=== PATIENT | male | born 1965 | race Caucasian/White ===

== ENCOUNTER 2017-01-14 21:54 | Emergency (ER) | payer MEDICARE, OTHER ==
[~2017-01-14 21:54] MED LIST: GABAPENTIN600 MG PO; IBUPROFEN800 MG PO; LEVAQUIN500 MG PO; NITROQUICK0.4 MG SL; PAIN RELIEVER650 MG PO; PERCOCET 10-321 EACH PO; PREDNISONE 10MG10 MG PO; SINGULAIR10 MG PO; TIZANIDINE HCL2 MG PO; ZANTAC150 MG PO
[2017-01-14 22:18] LABS: BASO # 0.1 10_X3_uL (0.0-0.1); BASO % 0.7 % (0.2-1.2); EOS # 0.4 10_X3_uL (0.0-0.5); EOS % 3.8 % (0.8-7.0); GRAN # 6.3 10_X3_uL (1.8-5.4); HEMOGLOBIN 12.3 g/dL (13.7-17.5); LYMPH # 3.4 10_X3_uL (1.3-3.6); LYMPH % 30.4 % (21.8-53.1); MEAN CORPUSCULAR HGB CONC 33.2 g/dL (32.0-36.0); MEAN CORPUSCULAR VOLUME 90.2 fL (79-92); MONO # 0.9 10_X3_uL (0.3-0.8); MONO % 8.1 % (5.3-12.2); PLATELET COUNT 373 x10_3/uL (163-337); RED CELL DISTRIBUTION WIDTH 15.4 % (11.6-14.4)
[2017-01-14 22:32] LABS: ALBUMIN 3.8 gm/dL (3.4-5.0); ALKALINE PHOSPHATASE 52 U/L (50-136); ALT/SGPT 14 U/L (7.53-40.17); AST/SGOT 19 U/L (6.66-35.34); BLOOD UREA NITROGEN 11 mg/dL (7-18); CARBON DIOXIDE 29 mmol/L (21-32); CREATINE KINASE 215 U/L (35-232); CREATININE 0.7 mg/dL (0.6-1.3); GLUCOSE,RANDOM 109 mg/dL (70-99); POTASSIUM 3.9 mmol/L (3.5-5.1); SODIUM 139 mmol/L (136-145); TOTAL PROTEIN 6.6 gm/dL (6.4-8.2)
[2017-01-14 22:35] LABS: BILIRUBIN,TOTAL < 0.15 mg/dL (0.0-1.0)
== END 2017-01-14 22:58 | disposition home or self-care (01) ==
LOC: ER 21:54
PROVIDERS: Internal Medicine
DX: R07.89 Other chest pain (principal); I25.2 Old myocardial infarction; J44.9 Chronic obstructive pulmonary disease, unspecified; F17.220 Nicotine dependence, chewing tobacco, uncomplicated; Z79.82 Long term (current) use of aspirin; Z79.899 Other long term (current) drug therapy
CPT/HCPCS: 36415; 71020; 80053; 82550; 82553; 85025; 93005; 96374; 99070; 99284; 99285-25

== ENCOUNTER 2017-01-26 10:24 | Emergency (ER) | payer MEDICARE, OTHER ==
[2017-01-26 10:58] LABS: BASO # 0.1 10_X3_uL (0.0-0.1); BASO % 0.5 % (0.2-1.2); EOS # 0.3 10_X3_uL (0.0-0.5); EOS % 3.1 % (0.8-7.0); GRAN # 6.7 10_X3_uL (1.8-5.4); HEMATOCRIT 36.7 % (40-51); LYMPH # 1.6 10_X3_uL (1.3-3.6); LYMPH % 16.7 % (21.8-53.1); MEAN CORPUSCULAR HEMOGLOBIN 29.7 pg (27.0-33.0); MEAN CORPUSCULAR HGB CONC 32.7 g/dL (32.0-36.0); MEAN CORPUSCULAR VOLUME 90.8 fL (79-92); MEAN PLATELET VOLUME 10.8 fl (7.5-11.5); MONO # 0.8 10_X3_uL (0.3-0.8); MONO % 8.7 % (5.3-12.2); PLATELET COUNT 272 x10_3/uL (163-337); RED BLOOD COUNT 4.04 x10_6/uL (4.6-6.1); WHITE BLOOD COUNT 9.5 x10_3/uL (4.2-9.1)
[2017-01-26 11:15] LABS: ALBUMIN 3.9 gm/dL (3.4-5.0); ALKALINE PHOSPHATASE 45 U/L (50-136); ALT/SGPT 11 U/L (7.53-40.17); AST/SGOT 14 U/L (6.66-35.34); BILIRUBIN,TOTAL 0.18 mg/dL (0.0-1.0); BLOOD UREA NITROGEN 11 mg/dL (7-18); CARBON DIOXIDE 29 mmol/L (21-32); CREATININE 0.6 mg/dL (0.6-1.3); GLUCOSE,RANDOM 93 mg/dL (70-99); POTASSIUM 4.3 mmol/L (3.5-5.1); SODIUM 140 mmol/L (136-145); TOTAL PROTEIN 6.2 gm/dL (6.4-8.2)
== END 2017-01-26 13:53 | disposition home or self-care (01) ==
LOC: ER 10:24
PROVIDERS: General Practice
DX: R07.89 Other chest pain (principal); J43.9 Emphysema, unspecified; J44.9 Chronic obstructive pulmonary disease, unspecified; R91.8 Other nonspecific abnormal finding of lung field; I25.10 Atherosclerotic heart disease of native coronary artery without angina pectoris; I10 Essential (primary) hypertension; M54.9 Dorsalgia, unspecified; G89.29 Other chronic pain; Z79.899 Other long term (current) drug therapy; Z79.82 Long term (current) use of aspirin
CPT/HCPCS: 36415; 71010; 71260; 80053; 83605; 85025; 87040; 93005; 96372; 99070; 99284; 99285-25; J7040; Q9967